=== PATIENT | female | born 1950 | race Caucasian/White ===

== ENCOUNTER 2017-07-13 09:25 | Observation (INO) | payer MEDICARE, MEDICAID ==
[~2017-07-13] VITALS: Ht 167.6 cm; Wt 98.0 kg
[~2017-07-13 09:25] MED LIST: AMLO10TA PO; ARIP5TAB4 PO; CETI-102 PO; CYCL-1 PO; HCTZ25T PO; IBUP-1986 PO; IPRA3AMP IH; LISI40TA4 PO; MONT10TA21 PO; OMEP-84 PO; ONDA8TAB9 PO; PRAZ2CAP2 PO; SUCR1TAB PO; TRAZ300T2 PO; VILA10TA PO
[2017-07-13 10:16] LABS: BASOPHILS % (AUTO) 0.5 % (0-1); EOSINOPHILS # (AUTO) 0.4 X10'3 (0-0.9); EOSINOPHILS % (AUTO) 5.1 % (0-6); HEMATOCRIT 45.5 % (35.0-45.0); HEMOGLOBIN 15.5 g/dl (12.0-16.0); LYMPHOCYTES # (AUTO) 0.8 X10'3 (1.1-4.8); LYMPHOCYTES % (AUTO) 10.5 % (21-51); MEAN CORPUSCULAR HEMOGLOBIN 30.3 PG (27.0-31.0); MEAN CORPUSCULAR VOLUME 89.1 FL (78-98); MEAN PLATELET VOLUME 8.6 FL (7.4-10.4); MONOCYTES # (AUTO) 0.5 X10'3 (0-0.9); MONOCYTES % (AUTO) 6.1 % (2-12); NEUTROPHILS # (AUTO) 5.9 X10'3 (1.8-7.7); NEUTROPHILS % (AUTO) 77.8 % (42-75); PLATELET COUNT 183 X10'3 (140-440); RED BLOOD COUNT 5.11 X10'6 (4.20-5.60); RED CELL DISTRIBUTION WIDTH 13.9 % (11.5-14.5); WHITE BLOOD COUNT 7.6 X10'3 (4.5-11.0)
[2017-07-13 10:30] LABS: ALBUMIN 3.9 G/DL (3.4-5.0); ANION GAP 10 (8-16); BILIRUBIN,TOTAL 0.3 MG/DL (0.1-1.0); BLOOD UREA NITROGEN 27 MG/DL (7-18); BUN/CREATININE RATIO 24.3 (6.6-38.0); CALCIUM 9.7 MG/DL (8.5-10.1); CHLORIDE 105 MMOL/L (99-107); CREATININE 1.11 MG/DL (0.40-0.90); GLUCOSE 114 MG/DL (70-104); POTASSIUM 3.7 MMOL/L (3.5-5.1); SODIUM 145 MMOL/L (135-145); TOTAL CARBON DIOXIDE 30.2 MMOL/L (24-32); TOTAL PROTEIN 7.5 G/DL (6.4-8.2); eGFR 49 ML/MIN
[2017-07-13 10:31] LABS: ALANINE AMINOTRANSFERASE 29 U/L (12-78); ALBUMIN/GLOBULIN RATIO 1.1 (1.1-1.5); ALKALINE PHOSPHATASE 75 IU/L (46-116); ASPARTATE AMINO TRANSFERASE 16 U/L (10-37)
[2017-07-13] MEDS ORDERED: normal saline 1000ML IV soln IVB ONE ×2 (11:50→12:45)
[2017-07-13] MEDS ORDERED: ipratropium 0.5 MG/2.5ML nebule IH ONE (11:50)
[2017-07-13] MEDS ORDERED: albuterol 2.5 MG/3 ML nebule CONTNEB PRN (11:50)
[2017-07-13] MEDS ORDERED: methylPREDNISolone sod succ 125mg/2ml vial IV ONE (11:50)
[2017-07-13] MEDS ORDERED: levoFLOXACIN-Levaquin 500mg/D5 100 ML IV ONE (11:55)
[2017-07-13] MEDS ORDERED: levoFLOXACIN 250mg tablet PO ONE (13:30)
[2017-07-13] MEDS ORDERED: magnesium 2GM in 50ml NS 50 ML IV ONE (13:35)
[2017-07-13] MEDS ORDERED: magnesium 2GM in 50ml NS 50 ML IV PRN (15:10)
[2017-07-13] MEDS ORDERED: magnesium 4gm in 100ml NS 100 ML IV PRN (15:10)
[2017-07-13] MEDS: K and/or MAG REPLACEMENT MC SCH (15:10)
[2017-07-13] MEDS ORDERED: mag hydrox/Alum hydrox/simeth 30ml oral suspension PO PRN (15:10)
[2017-07-13] MEDS ORDERED: acetaminophen 325mg tablet PO PRN (15:10)
[2017-07-13] MEDS ORDERED: cyclobenzaprine 10mg tablet PO PRN (15:10)
[2017-07-13] MEDS ORDERED: potassium Cl 40MEQ/NS 500ml 500 ML IV PRN ×2 (15:10)
[2017-07-13] MEDS ORDERED: magnesium hydroxide 30ml (MOM) UD suspension PO PRN (15:10)
[2017-07-13] MEDS ORDERED: magnesium Cl slow-release 64mg tablet PO PRN (15:10)
[2017-07-13] MEDS ORDERED: HYDROcodone/acetaminophen 5mg/325mg tablet PO PRN (15:10)
[2017-07-13] MEDS: levoFLOXACIN-Levaquin 750MG/D5 150 ML IV SCH (15:10)
[2017-07-13] MEDS ORDERED: potassium Cl 20 mEq SR tablet PO PRN ×2 (15:10)
[2017-07-13] MEDS ORDERED: morphine 4 MG/ML inj SYRINge IV PRN (15:10)
[2017-07-13] MEDS ORDERED: ondansetron/PF 4mg/2ml inj IV PRN (15:10)
[2017-07-13] MEDS: normal saline 1000ml 1,000 ML IV SCH (15:47)
[2017-07-13] MEDS: HYDROcodone/acetaminophen 10/325mg tab PO PRN (19:04)
[2017-07-13 19:14] LABS: CLARITY,URINE Clear (Clear); COLOR,URINE Yellow (Yellow); GLUCOSE, URINE Negative (Neg); KETONES,URINE Negative (Neg); LEUKOCYTE ESTERASE ,URINE Negative (Neg); NITRITES, URINE Negative (Neg); OCCULT BLOOD,URINE Negative (Neg); PROTEIN,URINE Negative (Neg); UROBILINOGEN,URINE 0.2 E.U/dL (0.2-1.0)
[2017-07-13 19:25] LABS: UA COLLECTION TYPE CLN CATCH MIDSTREAM
[2017-07-13] MEDS: ipratropium/albuterol 3ml nebule NEB SCH (19:55)
[2017-07-13] MEDS: methylPREDNISolone sod succ 125mg/2ml vial IV SCH (20:15)
[2017-07-13] MEDS: sucralfate 1 gm tablet PO SCH (20:15)
[2017-07-13] MEDS ORDERED: non-formulary drug (Lisinopril* 1 TABLET) PO SCH (21:00)
[2017-07-13] MEDS ORDERED: non-formulary drug (Omeprazole* (Prilosec*) 20 MG) PO SCH (21:00)
[2017-07-13] MEDS ORDERED: TRAZODONE HCL PO SCH (21:00)
[2017-07-13] MEDS ORDERED: PRAZOSIN HCL 6 MG PO SCH (21:00)
[2017-07-13] MEDS ORDERED: temazepam 15mg capsule PO PRN (21:00)
[2017-07-13] MEDS: aripiprazole 5mg tablet PO SCH (21:30)
[2017-07-13] MEDS: lisinopril 20mg tablet PO SCH (21:31)
[2017-07-13] MEDS: prazosin 5mg capsule PO SCH (21:31)
[2017-07-13] MEDS: prazosin 1mg capsule PO SCH (21:32)
[2017-07-13] MEDS: traZODone 150mg tablet PO SCH (21:33)
[2017-07-13] MEDS: montelukast 10mg tablet PO SCH (21:33)
[2017-07-13] MEDS ORDERED: GABA-532 PO (22:20)
[2017-07-13] MEDS: morphine 4 MG/ML inj SYRINge IV PRN (22:26)
[2017-07-13] MEDS: gabapentin 300mg capsule PO SCH (23:10)
[2017-07-14] MEDS: ipratropium/albuterol 3ml nebule NEB SCH ×5 (00:02→14:43)
[2017-07-14] MEDS: normal saline 1000ml 1,000 ML IV SCH ×2 (01:09→06:42)
[2017-07-14] MEDS: sucralfate 1 gm tablet PO SCH ×4 (02:00→19:30)
[2017-07-14] MEDS: methylPREDNISolone sod succ 125mg/2ml vial IV SCH ×4 (03:17→19:29)
[2017-07-14 07:36] LABS: BASOPHILS % (AUTO) 0 % (0-1); EOSINOPHILS # (AUTO) 0.1 X10'3 (0-0.9); EOSINOPHILS % (AUTO) 1.1 % (0-6); HEMATOCRIT 43.1 % (35.0-45.0); HEMOGLOBIN 14.5 g/dl (12.0-16.0); LYMPHOCYTES # (AUTO) 0.7 X10'3 (1.1-4.8); LYMPHOCYTES % (AUTO) 7.8 % (21-51); MEAN CORPUSCULAR HEMOGLOBIN 30.3 PG (27.0-31.0); MEAN CORPUSCULAR HGB CONC 33.8 % (33.0-36.5); MEAN CORPUSCULAR VOLUME 89.7 FL (78-98); MEAN PLATELET VOLUME 8.3 FL (7.4-10.4); MONOCYTES # (AUTO) 0.1 X10'3 (0-0.9); MONOCYTES % (AUTO) 1.4 % (2-12); NEUTROPHILS # (AUTO) 8.5 X10'3 (1.8-7.7); NEUTROPHILS % (AUTO) 89.7 % (42-75); PLATELET COUNT 192 X10'3 (140-440); RED BLOOD COUNT 4.81 X10'6 (4.20-5.60); RED CELL DISTRIBUTION WIDTH 14.2 % (11.5-14.5); WHITE BLOOD COUNT 9.5 X10'3 (4.5-11.0)
[2017-07-14 07:52] LABS: ALANINE AMINOTRANSFERASE 28 U/L (12-78); ALBUMIN 3.6 G/DL (3.4-5.0); ALBUMIN/GLOBULIN RATIO 0.9 (1.1-1.5); ALKALINE PHOSPHATASE 70 IU/L (46-116); ANION GAP 13 (8-16); ASPARTATE AMINO TRANSFERASE 15 U/L (10-37); BILIRUBIN,TOTAL 0.2 MG/DL (0.1-1.0); BLOOD UREA NITROGEN 18 MG/DL (7-18); BUN/CREATININE RATIO 16.2 (6.6-38.0); CALCIUM 9.3 MG/DL (8.5-10.1); CHLORIDE 105 MMOL/L (99-107); CREATININE 1.11 MG/DL (0.40-0.90); GLUCOSE 146 MG/DL (70-104); MAGNESIUM 2.4 MG/DL (1.5-2.4); PHOSPHORUS 3.2 MG/DL (2.3-4.5); POTASSIUM 4.1 MMOL/L (3.5-5.1); SODIUM 143 MMOL/L (135-145); TOTAL CARBON DIOXIDE 25.3 MMOL/L (24-32); TOTAL PROTEIN 7.4 G/DL (6.4-8.2); eGFR 49 ML/MIN
[2017-07-14] MEDS ORDERED: non-formulary drug (Amlodipine Besylate 1 TABLET) PO SCH (08:00)
[2017-07-14] MEDS: K and/or MAG REPLACEMENT MC SCH (08:00)
[2017-07-14] MEDS: cetirizine 10mg tablet PO SCH (08:58)
[2017-07-14] MEDS: HYDROchlorothiazide 25mg tablet PO SCH (08:58)
[2017-07-14] MEDS: enoxaparin 40mg/0.4ml syringe SUBCUT SCH (08:58)
[2017-07-14] MEDS: amLODIPine 5mg tablet PO SCH (08:59)
[2017-07-14] MEDS: levoFLOXACIN-Levaquin 750MG/D5 150 ML IV SCH (08:59)
[2017-07-14 09:00] VITALS: BP 185/81
[2017-07-14] MEDS: pantoprazole 40mg Tablet.DR PO SCH (09:16)
[2017-07-14] MEDS: HYDROcodone/acetaminophen 10/325mg tab PO PRN ×3 (09:16→19:30)
[2017-07-14 11:00] VITALS: BP 185/81
[2017-07-14] MEDS ORDERED: atenolol 50mg tablet PO ONE (16:50)
[2017-07-14] MEDS: morphine 4 MG/ML inj SYRINge IV PRN (17:15)
[2017-07-14 19:00] VITALS: BP 162/73
[2017-07-14] MEDS: lactobacillus rhamnosus 10,000 MMU CELLS/CAPSULE PO SCH (19:30)
[2017-07-14] MEDS: ipratropium/albuterol 3ml nebule NEB PRN (19:47)
[2017-07-14] MEDS: lisinopril 20mg tablet PO SCH (21:16)
[2017-07-14] MEDS: prazosin 1mg capsule PO SCH (21:16)
[2017-07-14] MEDS: prazosin 5mg capsule PO SCH (21:16)
[2017-07-14] MEDS: gabapentin 300mg capsule PO SCH (21:17)
[2017-07-14] MEDS: traZODone 150mg tablet PO SCH (21:17)
[2017-07-14] MEDS: montelukast 10mg tablet PO SCH (21:17)
[2017-07-14] MEDS: aripiprazole 5mg tablet PO SCH (21:17)
[2017-07-15] VITALS: BP 140/70
[2017-07-15] MEDS: ipratropium/albuterol 3ml nebule NEB PRN ×2 (00:44→11:42)
[2017-07-15] MEDS: sucralfate 1 gm tablet PO SCH ×2 (03:25→08:16)
[2017-07-15 05:16] LABS: BASOPHILS % (AUTO) 0.1 % (0-1); EOSINOPHILS # (AUTO) 0.1 X10'3 (0-0.9); EOSINOPHILS % (AUTO) 0.7 % (0-6); HEMATOCRIT 41.9 % (35.0-45.0); HEMOGLOBIN 14.2 g/dl (12.0-16.0); LYMPHOCYTES # (AUTO) 1.2 X10'3 (1.1-4.8); LYMPHOCYTES % (AUTO) 8.1 % (21-51); MEAN CORPUSCULAR HEMOGLOBIN 30.3 PG (27.0-31.0); MEAN CORPUSCULAR HGB CONC 33.8 % (33.0-36.5); MEAN CORPUSCULAR VOLUME 89.4 FL (78-98); MEAN PLATELET VOLUME 9.1 FL (7.4-10.4); MONOCYTES # (AUTO) 0.5 X10'3 (0-0.9); MONOCYTES % (AUTO) 3.6 % (2-12); NEUTROPHILS # (AUTO) 12.9 X10'3 (1.8-7.7); NEUTROPHILS % (AUTO) 87.5 % (42-75); PLATELET COUNT 192 X10'3 (140-440); RED BLOOD COUNT 4.69 X10'6 (4.20-5.60); RED CELL DISTRIBUTION WIDTH 14.1 % (11.5-14.5); WHITE BLOOD COUNT 14.8 X10'3 (4.5-11.0)
[2017-07-15 05:40] LABS: ALANINE AMINOTRANSFERASE 27 U/L (12-78); ALBUMIN 3.4 G/DL (3.4-5.0); ALKALINE PHOSPHATASE 61 IU/L (46-116); ANION GAP 10 (8-16); ASPARTATE AMINO TRANSFERASE 19 U/L (10-37); BILIRUBIN,TOTAL 0.2 MG/DL (0.1-1.0); BLOOD UREA NITROGEN 23 MG/DL (7-18); CALCIUM 9.4 MG/DL (8.5-10.1); CHLORIDE 102 MMOL/L (99-107); GLUCOSE 138 MG/DL (70-104); MAGNESIUM 2.2 MG/DL (1.5-2.4); PHOSPHORUS 3.4 MG/DL (2.3-4.5); POTASSIUM 3.9 MMOL/L (3.5-5.1); SODIUM 139 MMOL/L (135-145); TOTAL CARBON DIOXIDE 27.3 MMOL/L (24-32); TOTAL PROTEIN 6.8 G/DL (6.4-8.2); eGFR 56 ML/MIN
[2017-07-15] MEDS: K and/or MAG REPLACEMENT MC SCH (08:00)
[2017-07-15] MEDS ORDERED: atenolol 50mg tablet PO SCH (08:00)
[2017-07-15] MEDS: lactobacillus rhamnosus 10,000 MMU CELLS/CAPSULE PO SCH (08:16)
[2017-07-15] MEDS: pantoprazole 40mg Tablet.DR PO SCH (08:16)
[2017-07-15] MEDS: HYDROchlorothiazide 25mg tablet PO SCH (08:16)
[2017-07-15] MEDS: cetirizine 10mg tablet PO SCH (08:16)
[2017-07-15] MEDS: amLODIPine 5mg tablet PO SCH (08:16)
[2017-07-15] MEDS: levoFLOXACIN-Levaquin 750MG/D5 150 ML IV SCH (08:17)
[2017-07-15] MEDS: enoxaparin 40mg/0.4ml syringe SUBCUT SCH (08:18)
[2017-07-15] MEDS: methylPREDNISolone sod succ 125mg/2ml vial IV SCH (08:18)
[2017-07-15 09:53] VITALS: BP 149/83
[2017-07-15 11:57] VITALS: BP 164/75
[2017-07-15] MEDS ORDERED: LEVO500T89 PO (13:10)
[2017-07-15] MEDS ORDERED: LACT1CAP26 PO (13:10)
[2017-07-15] MEDS ORDERED: ATEN50TA41 PO (13:10)
[2017-07-15] MEDS ORDERED: PRED20TA PO (13:10)
[2017-07-15] MEDS ORDERED: FLUT1DIS4 INH (13:11)
[2017-07-15] MEDS: HYDROcodone/acetaminophen 10/325mg tab PO PRN (14:04)
== END 2017-07-15 14:50 | disposition home or self-care (01) ==
LOC: ER 09:25 → ED HOLD 15:09 → EDBEDREQ 17:27 → EDBEDREQSVC 17:27 → EDBEDREQDT 07-14 07:04 → EDBEDREQTM 07-14 07:04 → SUR 3N 07-14 07:49
PROVIDERS: ADMIT Family Medicine; ATTEND Family Medicine
DX: J96.90 Respiratory failure, unspecified, unspecified whether with hypoxia or hypercapnia (principal); J40 Bronchitis, not specified as acute or chronic; J44.1 Chronic obstructive pulmonary disease with (acute) exacerbation; F32.9 Major depressive disorder, single episode, unspecified; F41.9 Anxiety disorder, unspecified; I10 Essential (primary) hypertension; E86.0 Dehydration; N17.9 Acute kidney failure, unspecified; G43.909 Migraine, unspecified, not intractable, without status migrainosus
CPT/HCPCS: 36415; 71046; 80053; 81003; 83735; 83880; 84100; 84145; 84484; 85025; 87040; 87070; 87502; 87503; 93005; 94640; 94644; 94760; 96361; 96365; 96366; 96367; 96372; 96375; 96376; 99285; G0378; J1650; J1956; J2270; J2930; J3475; J7030